=== PATIENT | female | born 1990 | race Caucasian/White ===

== ENCOUNTER 2017-10-18 09:53 | Inpatient (IN) | payer BC ==
[~2017-10-18] VITALS: Ht 157.5 cm; Wt 66.2 kg
[~2017-10-18 09:53] MED LIST: ADVIL,NUPRIN,M200 MG PO; AMOX TR-K CLV1 EAC4 PO; HYDROCHLOROTH12.5 M3 PO; PRENATAL TABLE1 EAC3 PO
[2017-10-18 10:40] LABS: BASOPHIL (%) 0.5 % (0-1); BASOPHIL COUNT 0.1 K/uL (0-0.1); EOSINOPHIL (%) 0.1 % (0-5); HEMATOCRIT 41.8 % (36.0-46.0); HEMOGLOBIN 14.6 G/DL (11.9-15.5); IMMATURE GRANULOCYTE (%) 0.5 % (0.0-0.7); LYMPHOCYTE (%) 9.5 % (15-42); LYMPHOCYTE COUNT 1.4 K/uL (1.0-2.8); MCH 30.5 PG (29.0-34.0); MCHC 34.9 G/DL (30.0-36.0); MCV 87.3 FL (83-99); MONOCYTE (%) 5.8 % (3-12); MONOCYTE COUNT 0.9 K/uL (0-0.8); NEUTROPHIL (%) 83.6 % (45-76); NEUTROPHIL COUNT 12.2 K/uL (1.8-6.4); PLATELET COUNT 305 K/uL (156-360); RBC DIS.WIDTH-CV 12.5 % (11.8-14.6); RBC DIS.WIDTH-SD 40.1 % (39-53); RED BLOOD COUNT 4.79 M/uL (3.80-5.20); WHITE BLOOD COUNT 14.7 K/uL (4.1-10.2)
[2017-10-18 10:53] LABS: CHLORIDE 111 mEq/L (99-109); POTASSIUM 4.4 mEq/L (3.7-5.4); SODIUM 143 mEq/L (136-147)
[2017-10-18 10:55] LABS: GLUCOSE 107 mg/dL (70-99)
[2017-10-18 10:59] LABS: CREATININE 0.7 mg/dL (0.6-1.3); GFR ESTIMATE (CALCULATED) > 59 mL/min/
[2017-10-18 11:00] LABS: TROP-I INTERPRETATION POSITIVE; UREA NITROGEN (BUN) 14 mg/dL (9-23)
[2017-10-18 11:02] LABS: TROPONIN-I 13.12 ng/mL (0.0-0.30)
[2017-10-18 12:59] LABS: PTT 24.3 SEC (25-37)
[2017-10-18 13:45] LABS: TROP-I INTERPRETATION POSITIVE; TROPONIN-I 15.14 ng/mL (0.0-0.30)
[2017-10-18 14:27] LABS: QUANTITATIVE HCG < 4.0 MIU/ML
[2017-10-18 19:52] VITALS: BP 118/63
[2017-10-18 20:29] VITALS: BP 118/63
[2017-10-18 21:40] LABS: ALBUMIN 3.8 G/DL (3.2-4.8); ALKALINE PHOSPHATASE 61 IU/L (3-129); ALT (GPT) 17 IU/L (3-49); AST (GOT) 99 IU/L (2-34); CHLORIDE 108 MEQ/L (99-109); CREATININE 0.6 MG/DL (0.6-1.3); GFR ESTIMATE (CALCULATED) > 59 mL/min/; GLUCOSE 113 mg/dL (70-99); SODIUM 140 MEQ/L (136-147); TOTAL BILIRUBIN 0.3 MG/DL (0.0-1.0); UREA NITROGEN (BUN) 13 mg/dL (9-23)
[2017-10-18 21:43] LABS: INTER. NORMALIZED RATIO 1.1
[2017-10-18 21:45] LABS: PTT 26.1 SEC (25-37)
[2017-10-18 22:07] LABS: POTASSIUM 3.5 MEQ/L (3.7-5.4)
[2017-10-19 00:08] VITALS: BP 106/55
[2017-10-19 01:07] LABS: TROP-I INTERPRETATION POSITIVE
[2017-10-19 01:10] LABS: TROPONIN-I 12.63 ng/mL (0.0-0.30)
[2017-10-19 03:30] VITALS: BP 107/66
[2017-10-19 06:40] LABS: TROP-I INTERPRETATION POSITIVE; TROPONIN-I 7.77 ng/mL (0.0-0.30)
[2017-10-19 06:42] LABS: HDL CHOLESTEROL 41 MG/DL (Desirable>=50); LDL CHOLESTEROL 43 mg/dL (Desirable<100); NON-HDL CHOLESTEROL 79 mg/dL (Desirable<160); TOTAL CHOLESTEROL 120 mg/dL (Desirable<200); TRIGLYCERIDES 180 MG/DL (Normal: <150)
[2017-10-19 07:17] VITALS: BP 108/62
[2017-10-19 11:40] VITALS: BP 119/66
[2017-10-19] MEDS ORDERED: ASPIR-LOW81 MG PO (13:47)
[2017-10-19] MEDS ORDERED: CLOPIDOGREL75 MG PO (13:47)
[2017-10-19] MEDS ORDERED: LISINOPRIL2.5 MG PO (13:47)
[2017-10-19] MEDS ORDERED: HEPARIN SO25000 UNIT IV (13:47)
[2017-10-19 16:30] VITALS: BP 102/62
[2017-10-19 21:48] VITALS: BP 106/57
[2017-10-20] VITALS: BP 96/54
[2017-10-20 05:37] VITALS: BP 118/59
[2017-10-20 06:37] LABS: HEMATOCRIT 40.5 % (36.0-46.0); HEMOGLOBIN 13.6 G/DL (11.9-15.5); MCHC 33.6 G/DL (30.0-36.0); MCV 89.4 FL (83-99); PLATELET COUNT 228 K/uL (156-360); RBC DIS.WIDTH-CV 12.7 % (11.8-14.6); RED BLOOD COUNT 4.53 M/uL (3.80-5.20); WHITE BLOOD COUNT 6.2 K/uL (4.1-10.2)
[2017-10-20 08:41] VITALS: BP 96/61
[2017-10-20 11:33] VITALS: BP 115/60
[2017-10-20 15:56] VITALS: BP 98/56
== END 2017-10-20 17:59 | disposition short-term general hospital (02) | DRG 281 ==
LOC: EME 09:53 → EDOF 13:15 → 4EAST 13:15 → ENRESERV 13:51 → 4EAST 19:37
PROVIDERS: Emergency Medicine; Internal Medicine
DX: I21.4 Non-ST elevation (NSTEMI) myocardial infarction (principal); T82.128A Displacement of other cardiac electronic device, initial encounter; Z95.0 Presence of cardiac pacemaker; Z82.49 Family history of ischemic heart disease and other diseases of the circulatory system; Z79.82 Long term (current) use of aspirin; Z79.02 Long term (current) use of antithrombotics/antiplatelets
CPT/HCPCS: 71045; 80048; 80053; 80061; 84484; 84702; 85025; 85027; 85347; 85379; 85610; 85730; 93005; 99281; 99285; C1769; C1887; J1644; J2250; J3010; J7040